=== PATIENT | female | born 1940 | race Caucasian/White ===

== ENCOUNTER → 2018-03-10 | Outpatient (CLI) | payer MEDICARE, OTHER ==
[~2018-03-10] MED LIST: OMNIPAQUE 350 MG/ML, 100ML BOTTLE ONE
== END | disposition home or self-care (01) ==
LOC: CFH 12:57
PROVIDERS: ATTEND Nurse Practitioner Primary Care
DX: Z08 Encounter for follow-up examination after completed treatment for malignant neoplasm (principal); Z85.07 Personal history of malignant neoplasm of pancreas
CPT/HCPCS: 74177; Q9967

== ENCOUNTER → 2018-10-06 | Outpatient (CLI) | payer MEDICARE | END | disposition home or self-care (01) | LOC: CFH 10:35 | PROVIDERS: ATTEND Nurse Practitioner Primary Care | DX: Z12.31 Encounter for screening mammogram for malignant neoplasm of breast (principal); M81.0 Age-related osteoporosis without current pathological fracture | CPT/HCPCS: 77063; 77080; 77067 ==

== ENCOUNTER → 2019-04-03 | Outpatient (CLI) | payer MEDICARE | END | disposition home or self-care (01) | LOC: CFH 09:08 | PROVIDERS: ATTEND Nurse Practitioner Primary Care | DX: K59.00 Constipation, unspecified (principal); Z98.890 Other specified postprocedural states | CPT/HCPCS: 74177; 82565; Q9967 ==

== ENCOUNTER 2019-04-16 14:20 | Outpatient (CLI) | payer MEDICARE | END 2019-04-16 23:59 | disposition home or self-care (01) | LOC: CFH 14:20 | PROVIDERS: ATTEND Nurse Practitioner Primary Care | DX: M16.11 Unilateral primary osteoarthritis, right hip (principal); M47.816 Spondylosis without myelopathy or radiculopathy, lumbar region ==

== ENCOUNTER → 2021-04-21 | Outpatient (CLI) | payer MEDICARE | END | disposition home or self-care (01) | LOC: CFH 10:53 | PROVIDERS: ATTEND Nurse Practitioner Primary Care | DX: Z12.11 Encounter for screening for malignant neoplasm of colon (principal); C25.9 Malignant neoplasm of pancreas, unspecified; K51.90 Ulcerative colitis, unspecified, without complications; N28.1 Cyst of kidney, acquired; K43.9 Ventral hernia without obstruction or gangrene | CPT/HCPCS: 74177; 82565; Q9967 ==